=== PATIENT | male | born 2005 | race Caucasian/White ===

== ENCOUNTER 2025-03-15 00:18 | Emergency (ER) | payer SELFPAY ==
[~2025-03-15] VITALS: Ht 175.3 cm; Wt 91.6 kg
[2025-03-15 02:17] VITALS: PULSE 89; RESP 17; TEMP 98.9
[2025-03-15 02:28] VITALS: BP 120/67; PULSE 89; RESP 17; TEMP 98.9; O2SAT 98
== END 2025-03-15 02:31 | disposition home or self-care (01) ==
LOC: FSED 01:06
DX: R30.0 Dysuria (principal)
CPT/HCPCS: 80048; 81003; 99284